=== PATIENT | male | born 2000 | race Caucasian/White ===

== ENCOUNTER 2020-04-13 06:30 | Outpatient (CLI) | payer OTHER, SELFPAY ==
[2020-04-13 18:18] LABS: #Basophils 0.1 thou/uL (0.0-0.2); #Eosinphils 0.1 thou/uL (0.0-0.7); #Monocytes 0.4 thou/uL (0.11-0.59); #Neutrophils 2.8 thou/uL (1.40-6.50); %Basophils 1.1 % (0.0-1.0); %Eosinophils 1.3 % (0.0-10.0); %Monocytes 7.6 % (0.0-10.0); Hemoglobin 15.7 g/dL (14.0-18.0); Mean Corpuscular HGB CONC 33.6 g/dL (32.0-36.0); Mean Corpuscular Hemoglobin 31.1 pg (27.0-31.0); Mean Corpuscular Volume 92.6 fL (78.0-98.0); Mean Platelet Volume 8.5 fL (7.4-10.4); Platelet Count 182 thou/uL (130-400); RBC Distribution Width 11.7 % (11.5-14.5); Red Blood Cell (RBC) Count 5.06 mill/uL (4.70-6.10); White Blood Cell (WBC) Count 5.3 thou/uL (4.8-10.8)
[2020-04-14 13:11] LABS: SARS-CoV-2 MS2 Positive; SARS-CoV-2 N Gene Negative; SARS-CoV-2 S Gene Negative; SARS-CoV-2 orf1ab Negative
== END 2020-04-13 06:31 | disposition home or self-care (01) ==
LOC: LABBT 06:30
PROVIDERS: ATTEND Orthopaedic Surgery
DX: Z01.812 Encounter for preprocedural laboratory examination (principal); Z11.59 Encounter for screening for other viral diseases; M23.41 Loose body in knee, right knee
CPT/HCPCS: 85025; 87635; U0003

== ENCOUNTER 2020-04-16 06:01 | Day surgery (SDC) | payer OTHER ==
[2020-04-10 09:19] VITALS: BMI 26.1
[2020-04-16] MEDS ORDERED: Midazolam HCl 2 mg/2 ml Vial ONE (06:33)
[2020-04-16] MEDS ORDERED: Fentanyl 100 MCG/2 ML VIAL ONE (06:33)
[2020-04-16] MEDS ORDERED: Lidocaine 1% (PF) 30 ML VIAL ONE (06:59)
[2020-04-16] MEDS ORDERED: Bupivacaine/Epinephrine 0.25% 30 ML VIAL ONE (06:59)
[2020-04-16] MEDS ORDERED: Meperidine HCl/PF 25 MG/ML VIAL ONE (08:37)
[2020-04-16] MEDS ORDERED: HYDROcodone/Acetaminophen 5/325 mg Tablet ONE (09:59)
[2020-04-16] MEDS ORDERED: Dexamethasone 20 MG/5 ML VIAL ONE (14:36)
[2020-04-16] MEDS ORDERED: Ondansetron PF 4 MG/2 ML Vial ONE (14:36)
[2020-04-16] MEDS ORDERED: Lidocaine 1% PF 5 ML VIAL ONE (14:36)
[2020-04-16] MEDS ORDERED: PROPOFOL 200 MG/20 ML VIAL ONE (14:36)
[2020-04-16] MEDS ORDERED: Ketorolac Tromethamine 30 MG/ML VIAL ONE (14:36)
--- NOTE | 2020-04-17 06:52 | OP ---
DATE OF PROCEDURE: 04/16/2020 PREOPERATIVE DIAGNOSES: Right transient patellar dislocation, full-thickness cartilage defect, lateral femoral condyle with changes of medial patellofemoral facet. POSTOPERATIVE DIAGNOSES: 1. Transient right patellar dislocation. 2. Full-thickness cartilage defect, lateral femoral condyle outside of weightbearing dome. 3. Medial patellar facet cartilage injury, grade 2 to 3 changes. 4. Grade 1 changes of medial femoral condyle. 5. No loose bodies. PROCEDURE PERFORMED: Debridement and shaving, 3 compartments. CURRICULUM DEVELOPMENT MANAGER: None. ANESTHESIA: General. The patient received an LMA with 25 mL of Marcaine with epinephrine and lidocaine plain. TOURNIQUET TIME: 38 minutes. ANTIBIOTICS: Ancef 2 g. ESTIMATED BLOOD LOSS: Less than 30 mL of blood. COMPLICATIONS: None. HISTORY OF PRESENT ILLNESS: Giorgio is a 20-year-old male, who presents with right knee pain. This has been present after a fall 5 to 6 weeks ago. The patient is not locking, catching, is a student, and he does not drink. He continued to have pain with pivoting. I discussed with him MRI results. Discussed the risks and benefits of right knee arthroscopy with evaluation of the cartilage surfaces for loose bodies, debridement and shaving. I discussed risks to include pain, scar, bleeding, infection, damage to vital structures, decreased range of motion and strength, continued pain despite surgical intervention, arthritis, loss of life or limb. The patient understood the risks and benefits of the procedure and elected to proceed. DESCRIPTION OF PROCEDURE: Time-out was performed designated the patient's right lower extremity as the operative site based on site, consents, and marking. After time-out procedure, the patient had anterolateral portal and posteromedial portal was placed under spinal needle followed by shaving and debriding the fat pad. At completion of this, started my diagnostic scope, looked in the notch at the ACL and PCL, which were intact. The intrameniscal ligament was intact. We looked at the knee. The medial patellar facet had a large area of grade 2 to 3 changes predominately 2 changes, which we debrided the small loose cartilage bodies. Went into the suprapatellar pouch, saw no loose bodies . Went into both gutters, medial and lateral gutters looking for any loose bodies, which we did not see. We moved from there, went to our lateral compartment. Right near the posterior root insertion of the lateral meniscus, there was a little area of cartilage injury that was grade 1, but could have had a full-thickness perforation based on its position, the little fronds of the superior aspect of it. I looked in the posterior behind the condyles and did not see any loose bodies as I visualized posteriorly. I then moved from there to the patient's medial compartment. I probed the medial meniscus, it was stable with medial and saw no tears, there was a grade 1 change in medial femoral condyle, but no significant full-thickness defect of the medial femoral condyle. I probed and I then switched my viewing portal from lateral to medial. I visualized the knee looking again laterally and saw the full- thickness defect on the lateral aspect of the lateral femoral condyle. I debrided it to a stable dissection. I then looked back in the posterior capsule behind the medial femoral condyle, looking for loose bodies, I could not see. I then completed my diagnostic scope, with debridem,ent and shaving three compartments, washed and injected lidocaine after procedure and injected Marcaine with preprocedure. I closed the portals with 3.0 nylon let the tourniquet down. The patient will be weightbearing as tolerated. The patient will be followed postop and be sent to PT. Job ID: [id number] [facility] [email or web address]
== END 2020-04-16 11:20 | disposition home or self-care (01) ==
LOC: SDC 06:01
PROVIDERS: ATTEND Orthopaedic Surgery
PROC: 0SBC4ZZ Excision of Right Knee Joint, Percutaneous Endoscopic Approach (ICD-10-PCS; principal; 2020-04-16)
DX: M24.10 Other articular cartilage disorders, unspecified site (principal); S83.004A Unspecified dislocation of right patella, initial encounter
CPT/HCPCS: J0690; J1100; J1885; J2001; J2175; J2250; J2405; J2704; J3010